=== PATIENT | male | born 1990 | race Caucasian/White ===

== ENCOUNTER 2024-08-14 17:35 | Emergency (ER) | payer OTHER, SELFPAY ==
[2024-08-14] MEDS ORDERED: methylPREDNISolone Sod Succ/PF 125 MG/2 ML VIAL ONE (18:25)
[2024-08-14] MEDS ORDERED: Ipratropium/Albuterol 3 ML NEB ONE (18:25)
[2024-08-14] MEDS ORDERED: Magnesium 2 GM/50 ML BAG (IN WATER) ONE (18:26)
[2024-08-14 19:00] LABS: Hematocrit 50.7 % (42.0-52.0); Hemoglobin 15.1 g/dL (14.0-18.0); Mean Corpuscular HGB CONC 29.8 g/dL (32.0-36.0); Mean Corpuscular Hemoglobin 26.6 pg (27.0-31.0); Mean Platelet Volume 8.1 fL (7.4-10.4); Platelet Count 239 10x3/uL (130-400); RBC Distribution Width 15.3 % (11.5-14.5); White Blood Cell (WBC) Count 10.6 10x3/uL (4.8-10.8)
[2024-08-14 19:01] LABS: Anion Gap 14 mmol/L (10-20); Anisocytosis SLIGHT = 6-15 cells (100X) (0-5/hpf); BUN (Urea Nitrogen) 11 mg/dL (8.9-20.6); Band 10 % (5-11); Calc. Creatinine Clearance 0 mL/min (70-130); Calcium 9.1 mg/dL (7.8-10.44); Carbon Dioxide 28 mmol/L (22-29); Chloride 103 mmol/L (98-107); Estimated GFR 105; Glucose 90 mg/dL (70-105); Hypochromia SLIGHT = 6-15 cells (100X) (0-5/hpf); Lymphocytes 25 % (21-51); MDiff Complete? YES; Monocytes 8 % (0-10); Neutrophil 56 % (42-75); Platelet Adequacy Comment Appears Adequate; Potassium 3.8 mmol/L (3.5-5.1); Sodium 141 mmol/L (136-145)
== END 2024-08-14 19:38 | disposition home or self-care (01) ==
LOC: MADERS 17:35
DX: J18.9 Pneumonia, unspecified organism (principal); J45.901 Unspecified asthma with (acute) exacerbation; H66.91 Otitis media, unspecified, right ear; Z79.51 Long term (current) use of inhaled steroids
CPT/HCPCS: 71046; 80048; 85025; 96365; 96375; J2919; J3475; J7620